=== PATIENT | male | born 1955 | race Caucasian/White ===

== ENCOUNTER 2023-09-15 15:36 | Emergency (ER) | payer MEDICARE ==
[2023-09-15] MEDS ORDERED: Sodium Chloride 0.9% 1000 ML 1,000 ML IV STA (16:12)
[2023-09-15 16:18] VITALS: BP 120/60; RESP 18; TEMP 99.4; O2SAT 96
[2023-09-15] MEDS ORDERED: ROCEPHIN 2 Gm-D5w 50ML BAG** 2 G/50 ML IVPB IV STA (16:37)
[2023-09-15 16:48] LABS: Absolute Neutrophil Ct (ANC) 6.64 x10^3/uL (1.4-6.9); BASOPHIL % 0.4 % (0.0-0.4); Basophil (Absolute #) 0.04 x10^3/uL (0-0.4); Eosinophil % 0.9 % (0.00-5.0); Eosinophil (Absolute #) 0.08 x10^3/uL (0-0.5); Hematocrit 38.4 % (42-50); Hemoglobin 12.2 g/dL (12.5-18.0); IMMATURE GRAN # 0.03 x10^3u/L (0.00-0.03); IMMATURE GRAN % 0.3 % (0.00-0.4); Lymphocyte (Absolute #) 1.76 x10^3/uL (1.0-4.6); Lymphocytes % 19.7 % (24.0-44.0); Mean Cell Volume 105.2 fL (78-100); Mean Corpuscular Hemoglobin 33.4 pg (26-32); Mean Corpuscular Hgb Concent. 31.8 g/dL (32-36); Mean Platelet Volume 9.2 fL (7.5-11.0); Monocytes % 4.5 % (0.0-12.0); Neutrophil % 74.2 % (36.0-66.0); Platelet Count 161 x10^3/uL (150-450); Red Blood Count 3.65 x10^6/uL (4.1-5.6)
[2023-09-15 17:02] LABS: ALBUMIN 3.9 g/dL (3.5-5.0); ANION GAP 17.2 MEQ/L (5-15); BILIRUBIN,TOTAL 0.8 mg/dL (0.2-1.3); Calcium 9.3 mg/dL (8.4-10.2); Creatinine 1 1.38 mg/dL (0.66-1.25); EST GLOMERULAR FILTRATION RATE 56.8 ML/MIN; Potassium 3.6 mmol/L (3.5-5.1); Total Protein 7.2 g/dL (6.3-8.2)
[2023-09-15] MEDS ORDERED: Zofran 4 MG/2 ML VIAL IV ONE (17:07)
[2023-09-15] MEDS ORDERED: TORAdol 30 mg Injection IM ONE (17:07)
[2023-09-15] MEDS ORDERED: Sodium Chloride 0.9% 1000 ML 1,000 ML ONE (17:13)
[2023-09-15] MEDS ORDERED: Zofran 4 MG/2 ML VIAL ONE (17:13)
[2023-09-15] MEDS ORDERED: TORAdol 30 mg Injection ONE (17:13)
[2023-09-15] MEDS ORDERED: ROCEPHIN 2 Gm-D5w 50ML BAG** 2 G/50 ML IVPB IV ONE (17:14)
[2023-09-15 17:15] LABS: Appearance Turbid (Clear); Bacteria Many /HPF (None Seen); Bilirubin Negative (Negative); Blood NHT (Negative); Glucose, Urine Negative (Negative); Ketones Negative (Negative); Leukocyte Esterase Large (Negative); Nitrite Negative (Negative); Protein,Urine Dip 30 (Negative); Urobilinogen 0.2 mg/dL (0.2)
[2023-09-15 17:17] LABS: ADD URINE CULTURE? ORDERED SEPARATELY (NO); Epithelial Cells Rare /HPF (None Seen); Hyaline Casts None Seen /LPF (0-2); RBC 0-2 /HPF (0-5)
[2023-09-15 18:36] VITALS: PULSE 94
--- NOTE | 2023-09-15 18:41 | ERPHSYRPT ---
- History of Present Illness Time Seen by Provider: 09/15/23 16:30 Source: patient Exam Limitations: no limitations Patient Subjective Stated Complaint: pt here for possible UTI, pt has a bladder pouch from [place] and he self caths at home, today co fever, chills, back pain. Triage Nursing Assessment: pt walked in,resp easy, skin w/d/p, abd soft, stoma to right side of abd, moves all ext well Physician History: Patient is a 67-year-old white male who presents with left flank pain soreness in the lower abdomen. He has a urinary pouch that he caths through a little UreterostomyHe complains of malaise generalized myalgia and some fever.. He had bladder cancer several years ago and was treated surgically. 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 - Vaccination Dates Date of 2cond Vaccination (if applicable): 2020 - Past Medical History Pertinent Past Medical History: Yes History: Bladder Cancer - Past Surgical History Past Surgical History: Yes Genitourinary: Other Other Surgical History: kobe pouch for bladder 2020 - Social History Smoking Status: Former smoker Exposure to second hand smoke: No Drug Use: none Patient Lives Alone: Yes - Review of Systems Constitutional: Fever, Chills, Malaise, Weakness Eyes: No Symptoms Ears, Nose, & Throat: No Symptoms Respiratory: No Cough, No Dyspnea Cardiac: No Chest Pain, No Edema, No Syncope Abdominal/Gastrointestinal: Abdominal Pain (Tenderness around the area of the ureteral pouch some foul-smelling urine), No Nausea, No Vomiting, No Diarrhea Genitourinary Symptoms: Other Musculoskeletal: No Back Pain, No Neck Pain Skin: No Rash Neurological: No Dizziness, No Focal Weakness, No Sensory Changes Psychological: No Symptoms Endocrine: No Symptoms All Other Systems: Reviewed and Negative - Nursing Vital Signs Nursing Vital Signs: Initial Vital Signs Temperature 99.4 F 09/15/23 16:14 Pulse Rate 64 09/15/23 16:14 Respiratory Rate 18 09/15/23 16:14 Blood Pressure 120/60 09/15/23 16:14 O2 Sat by Pulse Oximetry 96 09/15/23 16:14 Pain Scale Pain Intensity 3 - Physical Exam General Appearance: mild distress Eye Exam: PERRL/EOMI Ears, Nose, Throat Exam: pharynx normal, moist mucous membranes Neck Exam: normal inspection, supple Respiratory Exam: normal breath sounds, lungs clear Cardiovascular Exam: regular rate/rhythm, No edema Gastrointestinal/Abdomen Exam: tenderness (Around the pouch and ureterostomy), distention Rectal Exam: deferred Male Genital Exam: normal genitalia Back Exam: normal inspection, No CVA tenderness Extremity Exam: normal inspection, normal range of motion, No pedal edema Neurologic Exam: alert, oriented x 3, cooperative, sensation nml, No motor deficits Skin Exam: normal color, warm, dry, No rash SpO2 Interpretation: normal SpO2: 96 O2 Delivery: Room Air - Course Nursing assessment & vital signs reviewed: Yes Ordered Tests: Active Orders 24 hr Category Date Time Status IV Insertion STAT Care 09/15/23 16:12 Active BLOOD CULTURE Stat Lab 09/15/23 16:45 Received CBC W DIFF Stat Lab 09/15/23 16:35 Completed CMP Stat Lab 09/15/23 16:35 Completed CULTURE,URINE Stat Lab 09/15/23 16:44 Received Lactic Acid Stat Lab 09/15/23 16:39 Completed UA W/RFX UR CULTURE Stat Lab 09/15/23 16:44 Completed Medication Summary Discontinued Medications Generic Name Dose Route Start Last Admin Trade Name Jordi PRN Reason Stop Dose Admin Sodium Chloride 1,000 mls @ 999 mls/hr 09/15/23 16:12 09/15/23 17:18 Sodium Chloride 0.9% 1000 Ml IV 09/15/23 17:12 999 mls/hr .Q1H1M STA Administration Ceftriaxone Sodium/Dextrose 2 g in 50 mls @ 100 mls/hr 09/15/23 16:37 09/15/23 17:19 Rocephin 2 Gm-D5w 50ml Bag IV 09/15/23 17:06 100 ml/hr STAT STA 100 mls/hr Administration Sodium Chloride Confirm 09/15/23 17:13 Sodium Chloride 0.9% 1000 Ml Administered 09/15/23 17:14 Dose 1,000 mls @ ud .ROUTE .STK-MED ONE Ceftriaxone Sodium/Dextrose Confirm 09/15/23 17:14 Rocephin 2 Gm-D5w 50ml Bag Administered 09/15/23 17:15 Dose 2 g in 50 mls @ ud IV .STK-MED ONE Ketorolac Tromethamine 30 mg 09/15/23 17:07 09/15/23 17:19 Ketorolac Tromethamine 30 Mg/Ml Inj IM 09/15/23 17:08 30 mg STAT ONE Administration Ketorolac Tromethamine Confirm 09/15/23 17:13 Ketorolac Tromethamine 30 Mg/Ml Inj Administered 09/15/23 17:14 Dose 30 mg .ROUTE .STK-MED ONE Ondansetron HCl 4 mg 09/15/23 17:07 09/15/23 17:20 Ondansetron Hcl 4 Mg/2 Ml Vial IV 09/15/23 17:08 4 mg STAT ONE Administration Ondansetron HCl Confirm 09/15/23 17:13 Ondansetron Hcl 4 Mg/2 Ml Vial Administered 09/15/23 17:14 Dose 4 mg .ROUTE .STK-MED ONE Lab/Rad Data: Laboratory Result Diagrams 09/15/23 16:35 09/15/23 16:35 Laboratory Results 09/15/23 09/15/23 09/15/23 Range/Units 16:44 16:39 16:35 WBC (4.0-10.5) x10^3/uL RBC (4.1-5.6) x10^6/uL Hgb (12.5-18.0) g/dL Hct (42-50) % MCV (78-100) fL MCH (26-32) pg MCHC (32-36) g/dL RDW (11.5-14.0) % Plt Count (150-450) x10^3/uL MPV (7.5-11.0) fL Gran % (36.0-66.0) % Immature Gran % (Auto) (0.00-0.4) % Nucleat RBC Rel Count (0.00-0.1) % Eos # (Auto) (0-0.5) x10^3/uL Immature Gran # (Auto) (0.00-0.03) x10^3u/L Absolute Lymphs (auto) (1.0-4.6) x10^3/uL Absolute Monos (auto) (0.0-1.3) x10^3/uL Absolute Nucleated RBC (0.00-0.01) x10^3u/L Lymphocytes % (24.0-44.0) % Monocytes % (0.0-12.0) % Eosinophils % (0.00-5.0) % Basophils % (0.0-0.4) % Absolute Granulocytes (1.4-6.9) x10^3/uL Basophils # (0-0.4) x10^3/uL Sodium 135 L (137-145) mmol/L Potassium 3.6 (3.5-5.1) mmol/L Chloride 106 (98-107) mmol/L Carbon Dioxide 16 L* (22-30) mmol/L Anion Gap 17.2 H (5-15) MEQ/L BUN 26 H (9-20) mg/dL Creatinine 1.38 H (0.66-1.25) mg/dL Estimated GFR 56.8 ML/MIN Glucose 111 H (74-106) mg/dL Lactic Acid 1.1 (0.4-2.0) Calcium 9.3 (8.4-10.2) mg/dL Total Bilirubin 0.80 (0.2-1.3) mg/dL AST 26 (17-59) U/L ALT 24 (0-50) U/L Alkaline Phosphatase 94 (38-126) U/L Serum Total Protein 7.2 (6.3-8.2) g/dL Albumin 3.9 (3.5-5.0) g/dL Urine Color Yellow (Yellow) Urine Appearance Turbid A (Clear) Urine pH 8.0 (4.6-8.0) Ur Specific [place] 1.010 (1.005-1.030) Urine Protein 30 (Negative) Urine Glucose (UA) Negative (Negative) mg/dL Urine Ketones Negative (Negative) Urine Blood NHT (Negative) Urine Nitrite Negative (Negative) Urine Bilirubin Negative (Negative) Urine Urobilinogen 0.2 (0.2) mg/dL Ur Leukocyte Esterase Large A (Negative) U Hyaline Cast (Auto) None Seen (0-2) /LPF Urine Microscopic RBC 0-2 (0-5) /HPF Urine Microscopic WBC 6-10 A (0-5) /HPF Ur Epithelial Cells Rare (None Seen) /HPF Urine Bacteria Many A (None Seen) /HPF Urine Culture Reflexed ORDERED SEPARATELY (NO) 09/15/23 Range/Units 16:35 WBC 9.0 (4.0-10.5) x10^3/uL RBC 3.65 L (4.1-5.6) x10^6/uL Hgb 12.2 L (12.5-18.0) g/dL Hct 38.4 L (42-50) % MCV 105.2 H (78-100) fL MCH 33.4 H (26-32) pg MCHC 31.8 L (32-36) g/dL RDW 13.0 (11.5-14.0) % Plt Count 161 (150-450) x10^3/uL MPV 9.2 (7.5-11.0) fL Gran % 74.2 H (36.0-66.0) % Immature Gran % (Auto) 0.3 (0.00-0.4) % Nucleat RBC Rel Count 0.0 (0.00-0.1) % Eos # (Auto) 0.08 (0-0.5) x10^3/uL Immature Gran # (Auto) 0.03 (0.00-0.03) x10^3u/L Absolute Lymphs (auto) 1.76 (1.0-4.6) x10^3/uL Absolute Monos (auto) 0.40 (0.0-1.3) x10^3/uL Absolute Nucleated RBC 0.00 (0.00-0.01) x10^3u/L Lymphocytes % 19.7 L (24.0-44.0) % Monocytes % 4.5 (0.0-12.0) % Eosinophils % 0.9 (0.00-5.0) % Basophils % 0.4 (0.0-0.4) % Absolute Granulocytes 6.64 (1.4-6.9) x10^3/uL Basophils # 0.04 (0-0.4) x10^3/uL Sodium (137-145) mmol/L Potassium (3.5-5.1) mmol/L Chloride (98-107) mmol/L Carbon Dioxide (22-30) mmol/L Anion Gap (5-15) MEQ/L BUN (9-20) mg/dL Creatinine (0.66-1.25) mg/dL Estimated GFR ML/MIN Glucose (74-106) mg/dL Lactic Acid (0.4-2.0) Calcium (8.4-10.2) mg/dL Total Bilirubin (0.2-1.3) mg/dL AST (17-59) U/L ALT (0-50) U/L Alkaline Phosphatase (38-126) U/L Serum Total Protein (6.3-8.2) g/dL Albumin (3.5-5.0) g/dL Urine Color (Yellow) Urine Appearance (Clear) Urine pH (4.6-8.0) Ur Specific [place] (1.005-1.030) Urine Protein (Negative) Urine Glucose (UA) (Negative) mg/dL Urine Ketones (Negative) Urine Blood (Negative) Urine Nitrite (Negative) Urine Bilirubin (Negative) Urine Urobilinogen (0.2) mg/dL Ur Leukocyte Esterase (Negative) U Hyaline Cast (Auto) (0-2) /LPF Urine Microscopic RBC (0-5) /HPF Urine Microscopic WBC (0-5) /HPF Ur Epithelial Cells (None Seen) /HPF Urine Bacteria (None Seen) /HPF Urine Culture Reflexed (NO) - Progress Progress: improved Medical Desision Making - Diagnostic Testing Diagnostic test were ordered, analyzed, and reviewed by me: Yes - Risk of complications Low Risk: Low risk of morbidity from additional dx testing or treatment - Departure Departure Disposition: Home Clinical Impression: Urinary tract infection Condition: Stable Critical Care Time: No Referrals: DOCTOR,NO FAMILY [Primary Care Provider] - Follow up/PCP as directed Instructions: Urinary Tract Infection, Adult (DC) Prescriptions: Cefdinir 300 mg PO BID 10 Days #20 cap
== END 2023-09-15 18:56 | disposition home or self-care (01) ==
LOC: ED 15:36
DX: N39.0 Urinary tract infection, site not specified (principal); R10.9 Unspecified abdominal pain; R53.83 Other fatigue; R50.9 Fever, unspecified; Z93.6 Other artificial openings of urinary tract status
CPT/HCPCS: 36000; 36415; 80053; 81001; 83605; 85025; 87040; 87077; 87086; 87186; 96360; 96365; 96374; 96375; 99284; J0696; J1885; J2405

== ENCOUNTER 2024-01-17 08:35 | Emergency (ER) | payer MEDICARE ==
[2024-01-17 08:47] VITALS: TEMP 98.6
--- NOTE | 2024-01-17 08:57 | ERPHSYRPT ---
- History of Present Illness Time Seen by Provider: 01/17/24 08:53 Source: patient Exam Limitations: no limitations Patient Subjective Stated Complaint: Pt states "I am pretty sure I have a UTI. I self cath and I am having all the same symptoms that I have had before." Triage Nursing Assessment: PT presented alert and oriented X 3, skin pwd. PT ambulates with an upright steady gait, able to speak in clear full setntences> [facility] Physician History: Patient is 68-year-old male with significant past medical history of transitional cell carcinoma of the bladder. Patient had later on developed neurogenic bladder and afterward patient has external urostomy. Since then patient has off-and-on urinary tract infection as patient is self catheterizing himself. Patient is denying any fever chills nausea or vomiting. Rest of the system review is unremarkable. Timing/Duration: today Activites at Onset: none Pain Radiation: none Severity of Pain-Max: none Severity of Pain-Current: none Associated Symptoms: denies symptoms Allergies/Adverse Reactions: No Known Drug Allergies Allergy (Unverified 09/15/23 16:51) Hx Tetanus, Diphtheria Vaccination/Date Given: No Hx Influenza Vaccination/Date Given: No Hx Pneumococcal Vaccination/Date Given: No Immunizations Up to Date: No Travel Risk - International Travel Have you traveled outside of the country in past 3 weeks: No - Coronavirus Screening Are you exhibiting any of the following symptoms?: No Close contact with a COVID-19 positive Pt in past 14-21 Days: No - Vaccine Status Have you recieved a 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 - Vaccination Dates Date of 2cond Vaccination (if applicable): 2020 - Past Medical History Pertinent Past Medical History: Yes Neurological History: No Pertinent History ENT History: No Pertinent History Cardiac History: No Pertinent History Respiratory History: No Pertinent History Endocrine Medical History: No Pertinent History Musculoskeletal History: No Pertinent History GI Medical History: No Pertinent History History: Bladder Cancer Psycho-Social History: No Pertinent History Male Reproductive Disorders: No Pertinent History - Past Surgical History Past Surgical History: Yes Genitourinary: Other Other Surgical History: kobe pouch for bladder 2020 - Social History Smoking Status: Former smoker Exposure to second hand smoke: No Drug Use: none Patient Lives Alone: Yes - Review of Systems Constitutional: No Fever, No Chills Eyes: No Symptoms Ears, Nose, & Throat: No Symptoms Respiratory: No Cough, No Dyspnea Cardiac: No Chest Pain, No Edema, No Syncope Abdominal/Gastrointestinal: No Abdominal Pain, No Nausea, No Vomiting, No Diarrhea Genitourinary Symptoms: No Dysuria Musculoskeletal: No Back Pain, No Neck Pain Skin: No Rash Neurological: No Dizziness, No Focal Weakness, No Sensory Changes Psychological: No Symptoms Endocrine: No Symptoms All Other Systems: Reviewed and Negative - Nursing Vital Signs Nursing Vital Signs: Initial Vital Signs Temperature 98.6 F 01/17/24 08:40 Pulse Rate 71 01/17/24 08:40 Respiratory Rate 20 01/17/24 08:40 Blood Pressure 148/74 01/17/24 08:40 O2 Sat by Pulse Oximetry 98 01/17/24 08:40 Pain Scale Pain Intensity 0 - Physical Exam General Appearance: no apparent distress, alert Eye Exam: PERRL/EOMI Ears, Nose, Throat Exam: pharynx normal, moist mucous membranes Neck Exam: normal inspection, supple Respiratory Exam: normal breath sounds, lungs clear Cardiovascular Exam: regular rate/rhythm, No edema Gastrointestinal/Abdomen Exam: soft, No tenderness Back Exam: normal inspection, No CVA tenderness Extremity Exam: normal inspection, normal range of motion, No pedal edema Neurologic Exam: alert, oriented x 3, cooperative, sensation nml, No motor deficits Skin Exam: normal color, warm, dry, No rash SpO2: 98 - Course Nursing assessment & vital signs reviewed: Yes EKG Interpreted by Me: Non-specific ST Changes, Other (ventricular bigeminy) Ordered Tests: Active Orders 24 hr Category Date Time Status EKG-ER Only STAT Care 01/17/24 10:11 Active CBC W DIFF Stat Lab 01/17/24 09:08 Completed CMP Stat Lab 01/17/24 09:08 Completed CULTURE,URINE Stat Lab 01/17/24 09:08 Received UA W/RFX UR CULTURE Stat Lab 01/17/24 09:08 Completed Medication Summary Generic Name Dose Route Start Last Admin Trade Name Freq PRN Reason Stop Dose Admin Sodium Chloride 1,000 mls @ 999 mls/hr 01/17/24 10:11 01/17/24 10:16 Sodium Chloride 0.9% 1000 Ml IV 01/17/24 11:11 999 mls/hr .Q1H1M STA Administration Ceftriaxone Sodium 1 gm in 100 mls @ 200 mls/hr 01/17/24 10:12 01/17/24 10:16 Rocephin 1 Gm / 100 Ml Nacl IV 01/17/24 10:41 200 mls/hr STAT ONE 200 mls/hr Administration Discontinued Medications Generic Name Dose Route Start Last Admin Trade Name Jordi PRN Reason Stop Dose Admin Sodium Chloride Confirm 01/17/24 10:16 Sodium Chloride 0.9% 1000 Ml Administered 01/17/24 10:17 Dose 1,000 mls @ ud .ROUTE .STK-MED ONE Ceftriaxone Sodium Confirm 01/17/24 10:16 Rocephin 1 Gm / 100 Ml Nacl Administered 01/17/24 10:17 Dose 1 gm in 100 mls @ ud IV .[facility] ONE Lab/Rad Data: Laboratory Result Diagrams 01/17/24 09:08 01/17/24 09:08 Laboratory Results 01/17/24 01/17/24 01/17/24 Range/Units 09:08 09:08 09:08 WBC 7.3 (4.0-10.5) x10^3/uL RBC 3.77 L (4.1-5.6) x10^6/uL Hgb 12.4 L (12.5-18.0) g/dL Hct 38.4 L (42-50) % MCV 101.9 H (78-100) fL MCH 32.9 H (26-32) pg MCHC 32.3 (32-36) g/dL RDW 12.6 (11.5-14.0) % Plt Count 144 L (150-450) x10^3/uL MPV 9.1 (7.5-11.0) fL Gran % 73.8 H (36.0-66.0) % Immature Gran % (Auto) 0.4 (0.00-0.4) % Nucleat RBC Rel Count 0.0 (0.00-0.1) % Eos # (Auto) 0.05 (0-0.5) x10^3/uL Immature Gran # (Auto) 0.03 (0.00-0.03) x10^3u/L Absolute Lymphs (auto) 1.43 (1.0-4.6) x10^3/uL Absolute Monos (auto) 0.39 (0.0-1.3) x10^3/uL Absolute Nucleated RBC 0.00 (0.00-0.01) x10^3u/L Lymphocytes % 19.5 L (24.0-44.0) % Monocytes % 5.3 (0.0-12.0) % Eosinophils % 0.7 (0.00-5.0) % Basophils % 0.3 (0.0-0.4) % Absolute Granulocytes 5.42 (1.4-6.9) x10^3/uL Basophils # 0.02 (0-0.4) x10^3/uL Sodium 138 (135-145) mmol/L Potassium 3.7 (3.5-5.1) mmol/L Chloride 111 H (98-107) mmol/L Carbon Dioxide 16 L* (22-30) mmol/L Anion Gap 15.9 H (5-15) MEQ/L BUN 21 H (9-20) mg/dL Creatinine 1.64 H (0.66-1.25) mg/dL Estimated GFR 45.9 ML/MIN Glucose 155 H (74-106) mg/dL Calcium 9.0 (8.4-10.2) mg/dL Total Bilirubin 0.40 (0.2-1.3) mg/dL AST 24 (17-59) U/L ALT 24 (0-50) U/L Alkaline Phosphatase 97 (38-126) U/L Serum Total Protein 7.3 (6.3-8.2) g/dL Albumin 3.8 (3.5-5.0) g/dL Urine Color Yellow (Yellow) Urine Appearance Turbid A (Clear) Urine pH 6.0 (4.6-8.0) Ur Specific [place] 1.010 (1.005-1.030) Urine Protein 30 (Negative) Urine Glucose (UA) Negative (Negative) mg/dL Urine Ketones Negative (Negative) Urine Blood Moderate A (Negative) Urine Nitrite Negative (Negative) Urine Bilirubin Negative (Negative) Urine Urobilinogen 1.0 A (0.2) mg/dL Ur Leukocyte Esterase Large A (Negative) Urine Microscopic RBC 6-10 A (0-5) /HPF Urine Microscopic WBC >100 A (0-5) /HPF Ur Epithelial Cells Rare (None Seen) /HPF Urine Bacteria Many A (None Seen) /HPF Urine Culture Reflexed YES (NO) - Progress Progress: improved Progress Note: 01/17/24 10:32 We have sent him an extra test on you show please follow-up with your primary care physician ER course patient has a bradycardia heart rate dropped to around 40s. EKG was done which was showing ventricular bigeminy. I discussed with the patient's about further workup as an outpatient. Counseled pt/family regarding: lab results, diagnosis, need for follow-up Medical Desision Making - Discussion of managment Reviewed:: Test results, Need for additional workup Agreed on:: Treatment plan - Diagnostic Testing Diagnostic test were ordered, analyzed, and reviewed by me: Yes Radiological Interpretation: Reviewed by me - Risk of complications Low Risk: Low risk of morbidity from additional dx testing or treatment - Departure Departure Disposition: Home Clinical Impression: Pyelonephritis, Ventricular bigeminy Condition: Stable Critical Care Time: No Referrals: DOCTOR,NO FAMILY [Primary Care Provider] - Follow up/PCP as directed Instructions: Urinary Tract Infection, Adult (DC), Arrhythmias (DC) Additional Instructions: Your EKG is showing some abnormal rhythm and you will require further outpatient cardiac workup show please follow-up with your primary care physician within a week or 2 and consider Holter monitoring. Discharge/Care Plan NAY OSPINA was seen on 01/17/24 in the Emergency Room. The patient was counseled regarding Diagnosis,Lab results, Imaging studies, need for follow up and when to return to the Emergency Room. Prescriptions given: Discharge Note I have spoken with the patient and/or caregivers. I have explained the patient's condition, diagnosis and treatment plan based on the information available to me at this time. I have answered the patient's and/or caregiver's questions and addressed any concerns. The patient and/or caregivers have as good understanding of the patient's diagnosis, condition and treatment plan as can be expected at this point. The vital signs have been stable. The patient's condition is stable and appropriate for discharge from the emergency department. The patient will pursue further outpatient evaluation with the primary care physician or other designated or consulting physician as outlined in the discharge instructions. The patient and/or caregivers are agreeable to this plan of care and follow-up instructions have been explained in detail. The patient and/or caregivers have received these instruction. The patient/and or caregivers are aware that any significant change in condition or worsening of symptoms should prompt an immediate return to this or the closest emergency department or call 911. NAY OSPINA was seen on 01/17/24 n the Emergency Room. At that time you were treated for an emergent condition, during your visit Laboratory, Radiology and/or other procedures may have been ordered. It is very important that you follow-up with your Primary Care Physician NO FAMILY DOCTOR within the next 24- 48 hours to review your Emergency Room visit and the final results of testing that was ordered. Some test results such as Urine Cultures, Blood Cultures, and other cultures if ordered will not be finalized for 24-48 hours. If you do not have a Primary Care Provider please call the medical records department at [phone] ext [phone] to obtain a copy of your results or you may sign into our patient portal to obtain these results by visiting us @ [email or web address] and completing the following steps: 1. Click on the Patient Portal link 2. Click the Patient Self Enrollment Link to complete the enrollment form and entering your 3. Once the enrollment form is completed you will receive an email with a temporary ID and password at the email address you provided. 4. Next choose a user name and password. Your user name must be at least 4 characters long and your password must be at least 4 characters long. 5. Choose a security question from the list and provide your answer to the question. If you already have signed into the Health Portal you may access your Health Care Information 02/06 by the following steps: 1. Login to our website @ [email or web address] 2. Enter your original user name and password. FAQS The [facility] Health Portal is an online tool that contains your Lab Results, Radiology Reports, Visit History, Discharge Instructions and Health Summary Lab and Radiology Results will not be available for 72 hours on the portal. The Portal is a secure site, passwords are encryted and URLs are re-written so they cannot be copied and pasted. You and authorized family members are the only ones who can access your Portal. Also there is a timeout feature that protects your information if you leave the Portal page open. If you have technical difficulty please use the Contact Us link on the page this will allow you to submit any questions you have regarding the Portal or you may contact the Medical Record Department at [phone]. Prescriptions: Ciprofloxacin [Cipro 500 MG] 500 mg PO BIDAC #20 tablet
[2024-01-17 09:13] LABS: Absolute Neutrophil Ct (ANC) 5.42 x10^3/uL (1.4-6.9); BASOPHIL % 0.3 % (0.0-0.4); Basophil (Absolute #) 0.02 x10^3/uL (0-0.4); Eosinophil % 0.7 % (0.00-5.0); Eosinophil (Absolute #) 0.05 x10^3/uL (0-0.5); Hematocrit 38.4 % (42-50); Hemoglobin 12.4 g/dL (12.5-18.0); IMMATURE GRAN # 0.03 x10^3u/L (0.00-0.03); IMMATURE GRAN % 0.4 % (0.00-0.4); Lymphocyte (Absolute #) 1.43 x10^3/uL (1.0-4.6); Lymphocytes % 19.5 % (24.0-44.0); Mean Cell Volume 101.9 fL (78-100); Mean Corpuscular Hemoglobin 32.9 pg (26-32); Mean Corpuscular Hgb Concent. 32.3 g/dL (32-36); Mean Platelet Volume 9.1 fL (7.5-11.0); Monocyte (Absolute #) 0.39 x10^3/uL (0.0-1.3); Monocytes % 5.3 % (0.0-12.0); Neutrophil % 73.8 % (36.0-66.0); Platelet Count 144 x10^3/uL (150-450); Red Blood Count 3.77 x10^6/uL (4.1-5.6); Red Cell Distribution Width 12.6 % (11.5-14.0); White Blood Count 7.3 x10^3/uL (4.0-10.5)
[2024-01-17 09:41] LABS: ALBUMIN 3.8 g/dL (3.5-5.0); ANION GAP 15.9 MEQ/L (5-15); BILIRUBIN,TOTAL 0.4 mg/dL (0.2-1.3); Creatinine 1 1.64 mg/dL (0.66-1.25); EST GLOMERULAR FILTRATION RATE 45.9 ML/MIN; Potassium 3.7 mmol/L (3.5-5.1); Total Protein 7.3 g/dL (6.3-8.2)
[2024-01-17 09:59] LABS: Appearance Turbid (Clear); Bacteria Many /HPF (None Seen); Bilirubin Negative (Negative); Blood Moderate (Negative); Epithelial Cells Rare /HPF (None Seen); Glucose, Urine Negative (Negative); Ketones Negative (Negative); Leukocyte Esterase Large (Negative); Nitrite Negative (Negative); Protein,Urine Dip 30 (Negative); WBC >100 /HPF (0-5)
[2024-01-17 10:02] LABS: ADD URINE CULTURE? YES (NO)
[2024-01-17] MEDS ORDERED: Sodium Chloride 0.9% 1000 ML 1,000 ML ONE (10:16)
[2024-01-17] MEDS: Sodium Chloride 0.9% 1000 ML 1,000 ML IV STA (10:16)
[2024-01-17] MEDS ORDERED: ROCEPHIN 1 GM / 100 ML NaCl 1 GM/100 ML IVPB IV ONE (10:16)
[2024-01-17] MEDS: ROCEPHIN 1 GM / 100 ML NaCl 1 GM/100 ML IVPB IV ONE (10:16)
[2024-01-17 10:32] VITALS: O2SAT 98
[2024-01-17 11:11] VITALS: BP 158/74; PULSE 75; RESP 24
== END 2024-01-17 11:27 | disposition home or self-care (01) ==
LOC: ED 08:35
DX: N12 Tubulo-interstitial nephritis, not specified as acute or chronic (principal); N31.2 Flaccid neuropathic bladder, not elsewhere classified; R00.1 Bradycardia, unspecified; R00.8 Other abnormalities of heart beat; Z85.51 Personal history of malignant neoplasm of bladder
CPT/HCPCS: 36415; 80053; 81001; 85025; 87077; 87086; 87186; 93005; 96360; 96365; 99284; J0696

== ENCOUNTER 2024-05-13 16:43 | Emergency (ER) | payer BC, MEDICARE ==
[2024-05-13 17:17] VITALS: PULSE 62; TEMP 98.9; O2SAT 97
--- NOTE | 2024-05-13 17:46 | ERPHSYRPT ---
- History of Present Illness Time Seen by Provider: 05/13/24 16:58 Source: patient Exam Limitations: no limitations Patient Subjective Stated Complaint: pt has an jolene pouch for a bladder and has to self cath and pt states that this is the 4 infection in 4 months, urine is dark and mucusy and has blood in it Triage Nursing Assessment: Pt brought self to the ER, hypertensive, denies pain, pulses normal, skin n/w/d, states that he does get a sharp pain that lasts for a few seconds and then it goes away, pt had only been off of his last antibiotic for approx a week and a half before he noticed he was getting another infection, Physician History: 68 years old male with history of bladder cancer status post radical resection with Jolene pouch presented in the ER with UTI symptoms for the last couple of days. Patient reports recently he had 3-4 UTIs and finished course of antibiotics little over a week ago. Patient reports discoloration of urine with some small which is usual for him to get UTI. Denies any abdominal pain, fever chills nausea or vomiting. Allergies/Adverse Reactions: No Known Drug Allergies Allergy (Verified 05/13/24 17:16) Hx Tetanus, Diphtheria Vaccination/Date Given: No Hx Influenza Vaccination/Date Given: No Hx Pneumococcal Vaccination/Date Given: No Travel Risk - International Travel Have you traveled outside of the country in past 3 weeks: No - Emerging Infectious Disease Are you exhibiting symptoms associated with any current EIDs: No - Past Medical History Pertinent Past Medical History: Yes Neurological History: No Pertinent History ENT History: No Pertinent History Cardiac History: No Pertinent History Respiratory History: No Pertinent History Endocrine Medical History: No Pertinent History Musculoskeletal History: No Pertinent History GI Medical History: No Pertinent History History: Bladder Cancer Psycho-Social History: No Pertinent History Male Reproductive Disorders: No Pertinent History - Past Surgical History Past Surgical History: Yes Genitourinary: Other Other Surgical History: jolene pouch for bladder 2020 - Social History Smoking Status: Former smoker Exposure to second hand smoke: No Drug Use: none Patient Lives Alone: Yes - Social Determinants of Health Will the patient participate in the screening: Yes Do you worry about a steady place to live?: No Do you have any problems with any of the following?: No known problems In the past 12 months,have you had to go without utilities?: No Transportation Issues: No Has anyone in your support network made you feel unsafe?: No Have you or anyone in your house had to go without enough: No - Review of Systems Constitutional: No Symptoms Ears, Nose, & Throat: No Symptoms Respiratory: No Symptoms Cardiac: No Symptoms Abdominal/Gastrointestinal: No Symptoms Genitourinary Symptoms: Dysuria Musculoskeletal: No Symptoms Neurological: No Symptoms Endocrine: No Symptoms - Nursing Vital Signs Nursing Vital Signs: Initial Vital Signs Temperature 98.9 F 05/13/24 17:02 Pulse Rate 62 05/13/24 17:02 Blood Pressure 146/77 05/13/24 17:02 O2 Sat by Pulse Oximetry 97 05/13/24 17:02 Pain Scale Pain Intensity 0 - Physical Exam General Appearance: no apparent distress, alert Eye Exam: PERRL/EOMI Ears, Nose, Throat Exam: normal ENT inspection Neck Exam: normal inspection, full range of motion Respiratory Exam: normal breath sounds, lungs clear Cardiovascular Exam: regular rate/rhythm, normal heart sounds Gastrointestinal/Abdomen Exam: soft, normal bowel sounds, other ([place] pouch), No tenderness Rectal Exam: deferred Back Exam: normal inspection Extremity Exam: normal inspection, normal range of motion Neurologic Exam: alert, oriented x 3, cooperative Skin Exam: normal color SpO2 Interpretation: normal SpO2: 97 O2 Delivery: Room Air Ordered Tests: Active Orders 24 hr Category Date Time Status CULTURE,URINE Stat Lab 05/13/24 17:35 Received UA W/RFX UR CULTURE Stat Lab 05/13/24 17:35 Completed Medication Summary Discontinued Medications Generic Name Dose Route Start Last Admin Trade Name Jordi PRN Reason Stop Dose Admin Levofloxacin 500 mg 05/13/24 18:15 05/13/24 18:30 Levofloxacin 250 Mg Tab PO 05/13/24 18:16 500 mg STAT ONE Administration Levofloxacin Confirm 05/13/24 18:29 Levofloxacin 250 Mg Tab Administered 05/13/24 18:30 Dose 500 mg .ROUTE .STK-MED ONE Lab/Rad Data: Laboratory Results 05/13/24 Range/Units 17:35 Urine Color Yellow (Yellow) Urine Appearance Cloudy A (Clear) Urine pH 7.0 (4.6-8.0) Ur Specific [place] 1.010 (1.005-1.030) Urine Protein 30 (Negative) Urine Glucose (UA) Negative (Negative) mg/dL Urine Ketones Negative (Negative) Urine Blood Large A (Negative) Urine Nitrite Positive A (Negative) Urine Bilirubin Negative (Negative) Urine Urobilinogen 0.2 (0.2) mg/dL Ur Leukocyte Esterase Large A (Negative) U Hyaline Cast (Auto) 3-5 A (0-2) /LPF Urine Microscopic RBC >100 A (0-5) /HPF Urine Microscopic WBC >100 A (0-5) /HPF Ur Epithelial Cells None Seen (None Seen) /HPF Urine Bacteria Many A (None Seen) /HPF Urine Culture Reflexed ORDERED SEPARATELY (NO) - Progress Progress: unchanged Progress Note: 05/13/24 18:43 68 years old with history of bladder cancer currently having [place] pouch needing scheduled catheterization is evaluated for increasing discoloration of urine with small similar to previous UTI. Patient has no peritoneal signs. Urinalysis consistent with UTI. Based on previous cultures, started on Levaquin. Recommended outpatient primary care and urology follow-up. Discussed signs symptoms of worsening needing return to ER which he seems understanding. Do not think patient needs imaging or any other workup and is stable for discharge. Counseled pt/family regarding: lab results, diagnosis, need for follow-up Medical Desision Making - Diagnostic Testing Diagnostic test were ordered, analyzed, and reviewed by me: Yes - Risk of complications The pt has a mod risk of morbidity or mortality based on: Need for prescription drug management - Departure Departure Disposition: Home Clinical Impression: Acute UTI (urinary tract infection) Condition: Stable Critical Care Time: No Referrals: JAMAAL POST DO [Primary Care Provider] - Follow up/PCP as directed Instructions: Urinary Tract Infection, Adult ED Additional Instructions: Take Tylenol/ibuprofen as needed. Drink plenty of fluids. Follow-up with your primary care and urologist for reevaluation and possible prophylactic antibiotics placement. Return to ER for worsening symptoms of UTI or if develop flank pain/fever chills/vomiting etc. Prescriptions: Levofloxacin [Levaquin 500 MG Tablet] 500 mg PO DAILY #7 tablet
[2024-05-13 18:02] LABS: ADD URINE CULTURE? ORDERED SEPARATELY (NO); Appearance Cloudy (Clear); Bacteria Many /HPF (None Seen); Bilirubin Negative (Negative); Blood Large (Negative); Epithelial Cells None Seen /HPF (None Seen); Glucose, Urine Negative (Negative); Ketones Negative (Negative); Leukocyte Esterase Large (Negative); Nitrite Positive (Negative); Protein,Urine Dip 30 (Negative); RBC >100 /HPF (0-5); Urobilinogen 0.2 mg/dL (0.2); WBC >100 /HPF (0-5)
[2024-05-13] MEDS ORDERED: Levofloxacin 250MG Tablet ONE (18:29)
[2024-05-13] MEDS: Levofloxacin 250MG Tablet PO ONE (18:30)
[2024-05-13 18:53] VITALS: BP 132/79
== END 2024-05-13 18:56 | disposition home or self-care (01) ==
LOC: ED 16:43
DX: N39.0 Urinary tract infection, site not specified (principal); Z90.6 Acquired absence of other parts of urinary tract
CPT/HCPCS: 81001; 87077; 87086; 87186; 99283; A9270-GY